=== PATIENT | female | born 1950 | race Caucasian/White ===

== ENCOUNTER 2016-10-13 18:36 | Emergency (ER) | payer MEDICARE, OTHER ==
[~2016-10-13 18:36] MED LIST: /ESCI10TA; ADV250INH INH; ADVAIR; ALLE25CA PO; AMBI10TA PO; BENA25TA9 PO; CARD180C4 PO; CELE-19 PO; COUM2.5T11 PO; ESTR625TA; FLUO20CA8 PO; HYDR12.55 PO; HYDR25TA6 PO; LISI10TA4 PO; LYRI75CA PO; MILKSUS5 PO; MIRA33504 PO; MULTCAP PO; OMEP20CA3 PO; PERC5TAB6 PO; PRIL20CA PO; SENO8.6T2 PO; TOPR50TA; TYLE325T5 PO; VICO5TAB PO; VICO5TAB16 PO; ZOCO40TA
[2016-10-13] MEDS ORDERED: ONDANSETRON 4 MG ORAL DISINTEGRATING TAB (S0181) As Ordered ONE (20:39)
--- NOTE | 2016-10-13 21:27 | EDDOCDS ---
Physician Documentation [facility] Name: Gretel Tang Age: 66 yrs Sex: Female : 1950 Arrival Date: 10/13/2016 Time: 18:36 Bed PR Private MD: Kay Lozano M. Disposition: 10/13/16 21:18 Discharged to Home/Self Care. Impression: Lower abdominal pain, unspecified, Unspecified adverse effect of drug or medicament. - Condition is Stable. - Discharge Instructions: Abdominal Pain, Adult, Food Choices to Help Relieve Diarrhea, Adult. - Prescriptions for ZOFRAN ODT 4 mg Oral - dissolve 1 tablet by ORAL route 4 times per day As needed do not chew, do not swallow whole; 20 tablet. - Medication Reconciliation, Local Pharmacy Hours form. - Follow up: Kay Lozano; When: Tomorrow; Reason: Recheck today's complaints, Continuance of care. - Problem is new. - Symptoms have improved. Historical: - Allergies: Codeine Sulfate; Lisinopril; PENICILLINS; - Home Meds: 1. Advair Diskus 250-50 mcg/dose Inhl dsdv 1 puff 2 times per day 2. metformin 500 mg Oral TG24 three times a day 3. chlorthalidone 25 mg Oral tab 1 tab once daily 4. omeprazole 20 mg Oral cpDR once daily 5. aspirin 81 mg Oral tab 1 tab once daily 6. fluoxetine 20 mg Oral cap 1 cap once daily 7. amlodipine 10 mg Oral tab 1 tab once daily - PMHx: COPD; Emphysema; GERD; Hypertension; Sleep Apnea w/ BiPap; Diabetes - NIDDM: controlled; - PSHx: Hysterectomy; wrist surgery; ulnar nerve bilateral; Carpal Tunnel Repair- Bilateral; hip replacement; Endoscopy, Upper; Knee surgery; nasal surgery; - Social history: Smoking status: Patient states former smoker of tobacco. No barriers to communication noted, The patient speaks fluent Armenian, Speaks appropriately for age. - Family history: Not pertinent. - : The pt / caregiver states he / she is not on anticoagulants. Home medication list is obtained from the patient. - Exposure Risk Screening:: None identified. Vital Signs: 10/13 18:37 BP 154 / 78; Pulse 101; Resp 22 S; Temp 96.9; Pulse Ox 97% on R/A; Weight 123.83 kg / dd6 273 lbs (R); Height 5 ft. 4 in. (162.56 cm) (R); 21:24 BP 146 / 76; Pulse 93; Resp 20; Temp 97.5(TE); Pulse Ox 94% on R/A; Pain 0/10; arin 18:37 Body Mass Index 46.86 (123.83 kg, 162.56 cm) dd6 MDM: 20:38 Ondansetron ODT Oral Disintegrating Tablet 4 mg PO once ordered. mo1 20:39 Abdomen 2 View Ordered. EDMS 20:45 Financial registration complete. gjb 20:49 [facility] Payment Agreement was scanned into [employer] and attached to record. kendrick Administered Medications: 20:43 Drug: Ondansetron ODT 4 mg [ondansetron 4 mg disintegrating tablet (1 tabs)] Route: PO; jf3 Signatures: Dispatcher [employer] EDMS Janet Chowdary RN RN srm O'Hagan, Michael, PA PA mo1 Geoffrey Zhong RN RN jmb Beck, Gabriela gjb Farman, Justin RN jf3 The chart was reviewed and I authenticate all verbal orders and agree with the evaluation and treatment provided.Corrections: (The following items were deleted from the chart) 20:43 20:39 CBC WITH DIFFERENTIAL+LAB ordered. EDMS EDMS 20:43 20:39 BASIC METABOLIC PROFILE+LAB ordered. EDMS EDMS 20:43 20:39 LIVER PROFILE+LAB ordered. EDMS EDMS Attachments: 20:49 [facility] Payment Agreement [facility] MTDD
--- NOTE | 2016-10-13 21:27 | EDDOCDS ---
Nurse's Notes [facility] Name: Gretel Tang Age: 66 yrs Sex: Female : 1950 Arrival Date: 10/13/2016 Time: 18:36 Bed PR1 / Private MD: Kay Lozano M. Diagnosis: Lower abdominal pain, unspecified;Unspecified adverse effect of drug or medicament Presentation: 10/13 18:40 Presenting complaint: Patient states: lower abd pain since 1430 today. nausea. diarrhea srm also. pt hyperventilating in triage . left triage to use BR. 18:54 Adult Sepsis Screening: The patient does not have new or worsening altered mentation. srm Patient's respiratory rate is less than 22. Systolic blood pressure is greater than 100. Patient has a qSOFA score of 0- Negative Sepsis Screen. Suicide/Homicide risk assessment- the patient denies having any suicidal and/or homicidal ideations and does not present with any other emotional, behavioral or mental health complaints. Status: Patient is not a family service caseworker or dependent. Transition of care: patient was not received from another setting of care. 18:54 Acuity: NIMA Level 3 srm 18:54 Method Of Arrival: Wheelchair srm 18:58 Presenting complaint: Patient states: started metformin this am then symptoms started srm this afternoon. Triage Assessment: 18:58 General: Appears uncomfortable, Behavior is appropriate for age, cooperative. Pain: srm Pain currently is 6 out of 10 on a pain scale. GI: Reports diarrhea, lower abdominal pain, nausea. Historical: - Allergies: Codeine Sulfate; Lisinopril; PENICILLINS; - Home Meds: 1. Advair Diskus 250-50 mcg/dose Inhl dsdv 1 puff 2 times per day 2. metformin 500 mg Oral TG24 three times a day 3. chlorthalidone 25 mg Oral tab 1 tab once daily 4. omeprazole 20 mg Oral cpDR once daily 5. aspirin 81 mg Oral tab 1 tab once daily 6. fluoxetine 20 mg Oral cap 1 cap once daily 7. amlodipine 10 mg Oral tab 1 tab once daily - PMHx: COPD; Emphysema; GERD; Hypertension; Sleep Apnea w/ BiPap; Diabetes - NIDDM: controlled; - PSHx: Hysterectomy; wrist surgery; ulnar nerve bilateral; Carpal Tunnel Repair- Bilateral; hip replacement; Endoscopy, Upper; Knee surgery; nasal surgery; - Social history: Smoking status: Patient states former smoker of tobacco. No barriers to communication noted, The patient speaks fluent Tajik, Speaks appropriately for age. - Family history: Not pertinent. - : The pt / caregiver states he / she is not on anticoagulants. Home medication list is obtained from the patient. - Exposure Risk Screening:: None identified. Screenin:24 Screening information is obtained from the patient. Fall risk: No risks identified. jmb Assistance ADL's: requires no assistance with activities of daily living. Abuse/DV Screen: The patient / caregiver reports he/she is: not in a situation that causes fear, pain or injury. Nutritional screening: No deficits noted. Advance Directives: Currently, there is no health care proxy. There is no active DNR order. There is no living will. There is no Power of Vise Hand. home support is adequate. Assessment: 21:24 General: Patient instructed on discharge instructions. Patient asked if there were any b questions regarding discharge, patient stated no. Patient signed discharge instructions. Patient discharged in stable condition. . GI: Abdomen is obese, Bowel sounds present X 4 quads. Abd is soft X 4 quads. Vital Signs: 18:37 BP 154 / 78; Pulse 101; Resp 22 S; Temp 96.9; Pulse Ox 97% on R/A; Weight 123.83 kg dd6 (R); Height 5 ft. 4 in. (162.56 cm) (R); 21:24 BP 146 / 76; Pulse 93; Resp 20; Temp 97.5(TE); Pulse Ox 94% on R/A; Pain 0/10; jmb 18:37 Body Mass Index 46.86 (123.83 kg, 162.56 cm) dd6 Vitals: 18:37 Log In Time: October 13, 2016 at 18:35. dd6 ED Course: 18:37 Patient visited by David Blanc PCA. dd6 18:37 Kay Lozano is Private Physician. dd6 18:37 Patient moved to Waiting dd6 18:38 Patient moved to Pre RCE dd6 18:54 Triage Initiated srm 20:08 Patient moved to Triage 1 jb5 20:10 Patient visited by Veronica Reeves PCA. jb5 20:24 Nikko Campos PA is PHCP. mo1 20:24 Puma Krishnamurthy DO is Attending Physician. mo1 20:31 Patient visited by Nikko Campso PA. mo1 20:43 Patient moved to TR1 jf3 20:49 [facility] Payment Agreement was scanned into [employer] and attached to record. gjb 21:08 Patient moved to PR1 / 25 jf3 21:18 Kay Lozano is Referral Physician. mo1 21:24 The patient / caregiver is instructed regarding the plan of care and ED course. jmb 21:24 No IV's were initiated during this patient's visit. No procedures done that require jmb assistance. Administered Medications: 20:43 Drug: Ondansetron ODT 4 mg [ondansetron 4 mg disintegrating tablet (1 tabs)] Route: PO; jf3 Order Results: There are currently no results for this order. Outcome: 21:18 Discharge ordered by Provider. mo1 21:24 Discharge Assessment: Patient awake, alert and oriented x 3. No cognitive and/or jmb functional deficits noted. Patient verbalized understanding of disposition instructions. Patient awake and alert. obeys commands, Oriented to person, place and time. Patient verbalized understanding of disposition instructions. Patient has no functional deficits. patient administered narcotics - no. The following High Risk Discharge criteria are identified: None. Discharged to home via wheelchair, with family. Condition: stable. Discharge instructions given to patient, Instructed on discharge instructions, follow up and referral plans. medication usage, Demonstrated understanding of instructions, medications, Pt was receptive of discharge instructions/ teaching. Prescriptions given X 1. No special radiology studies were completed. Property sent home with patient. 21:26 Patient left the ED. denverb Signatures: Janet Chowdary, RN RN Veronica Hale, NATIONAL EXPANSION RECRUITER NATIONAL EXPANSION RECRUITER jb5 David Blanc, NATIONAL EXPANSION RECRUITER NATIONAL EXPANSION RECRUITER dd6 Nikko Campos PA PA mo1 Geoffrey ZhongRN Honorio GarciaRN Louisa Chambers MTDD
--- NOTE | 2016-10-14 08:15 | REP ---
Clinical: Lower abdominal pain and cramping. Technique: Supine and upright views of the abdomen and pelvis. Findings: The bowel gas pattern is nonspecific and there is no evidence for obstruction or perforation. Multiple small radiodense structures are identified presumably within the ascending and transverse colon measuring up to approximately 17 mm maximal length and may reflect ingested tablets. Clinical correlation is recommended. No organomegaly. Skeletal structures normal for age. Impression: Suspected multiple ingested tablets requires correlation. No evidence for bowel obstruction or perforation. Signed by Raul Andersen MD 10/14/2016 08:06 A
--- NOTE | 2016-10-15 22:27 | EDDOCDS ---
Nurse's Notes [facility] Name: Gretel Tang Age: 66 yrs Sex: Female : 1950 Arrival Date: 10/13/2016 Time: 18:36 Bed PR1 / Private MD: Kay Lozano M. Diagnosis: Lower abdominal pain, unspecified;Unspecified adverse effect of drug or medicament Presentation: 10/13 18:40 Presenting complaint: Patient states: lower abd pain since 1430 today. nausea. diarrhea srm also. pt hyperventilating in triage . left triage to use BR. 18:54 Adult Sepsis Screening: The patient does not have new or worsening altered mentation. srm Patient's respiratory rate is less than 22. Systolic blood pressure is greater than 100. Patient has a qSOFA score of 0- Negative Sepsis Screen. Suicide/Homicide risk assessment- the patient denies having any suicidal and/or homicidal ideations and does not present with any other emotional, behavioral or mental health complaints. Status: Patient is not a sales agent food vending service or dependent. Transition of care: patient was not received from another setting of care. 18:54 Acuity: NIMA Level 3 srm 18:54 Method Of Arrival: Wheelchair srm 18:58 Presenting complaint: Patient states: started metformin this am then symptoms started srm this afternoon. Triage Assessment: 18:58 General: Appears uncomfortable, Behavior is appropriate for age, cooperative. Pain: srm Pain currently is 6 out of 10 on a pain scale. GI: Reports diarrhea, lower abdominal pain, nausea. Historical: - Allergies: Codeine Sulfate; Lisinopril; PENICILLINS; - Home Meds: 1. Advair Diskus 250-50 mcg/dose Inhl dsdv 1 puff 2 times per day 2. metformin 500 mg Oral TG24 three times a day 3. chlorthalidone 25 mg Oral tab 1 tab once daily 4. omeprazole 20 mg Oral cpDR once daily 5. aspirin 81 mg Oral tab 1 tab once daily 6. fluoxetine 20 mg Oral cap 1 cap once daily 7. amlodipine 10 mg Oral tab 1 tab once daily - PMHx: COPD; Emphysema; GERD; Hypertension; Sleep Apnea w/ BiPap; Diabetes - NIDDM: controlled; - PSHx: Hysterectomy; wrist surgery; ulnar nerve bilateral; Carpal Tunnel Repair- Bilateral; hip replacement; Endoscopy, Upper; Knee surgery; nasal surgery; - Social history: Smoking status: Patient states former smoker of tobacco. No barriers to communication noted, The patient speaks fluent Amharic, Speaks appropriately for age. - Family history: Not pertinent. - : The pt / caregiver states he / she is not on anticoagulants. Home medication list is obtained from the patient. - Exposure Risk Screening:: None identified. Screenin:24 Screening information is obtained from the patient. Fall risk: No risks identified. jmb Assistance ADL's: requires no assistance with activities of daily living. Abuse/DV Screen: The patient / caregiver reports he/she is: not in a situation that causes fear, pain or injury. Nutritional screening: No deficits noted. Advance Directives: Currently, there is no health care proxy. There is no active DNR order. There is no living will. There is no Power of Health Information Coder. home support is adequate. Assessment: 21:24 General: Patient instructed on discharge instructions. Patient asked if there were any b questions regarding discharge, patient stated no. Patient signed discharge instructions. Patient discharged in stable condition. . GI: Abdomen is obese, Bowel sounds present X 4 quads. Abd is soft X 4 quads. Vital Signs: 18:37 BP 154 / 78; Pulse 101; Resp 22 S; Temp 96.9; Pulse Ox 97% on R/A; Weight 123.83 kg dd6 (R); Height 5 ft. 4 in. (162.56 cm) (R); 21:24 BP 146 / 76; Pulse 93; Resp 20; Temp 97.5(TE); Pulse Ox 94% on R/A; Pain 0/10; jmb 18:37 Body Mass Index 46.86 (123.83 kg, 162.56 cm) dd6 Vitals: 18:37 Log In Time: October 13, 2016 at 18:35. dd6 ED Course: 18:37 Patient visited by David Blanc PCA. dd6 18:37 Kay Lozano is Private Physician. dd6 18:37 Patient moved to Waiting dd6 18:38 Patient moved to Pre RCE dd6 18:54 Triage Initiated srm 20:08 Patient moved to Triage 1 jb5 20:10 Patient visited by Veronica Reeves PCA. jb5 20:24 Nikko Campos PA is PHCP. mo1 20:24 Puma Krishnamurthy DO is Attending Physician. mo1 20:31 Patient visited by Nikko Campos PA. mo1 20:43 Patient moved to TR1 jf3 20:49 [facility] Payment Agreement was scanned into [employer] and attached to record. gjb 21:08 Patient moved to PR1 / 25 jf3 21:18 Kay Lozano is Referral Physician. mo1 21:24 The patient / caregiver is instructed regarding the plan of care and ED course. jmb 21:24 No IV's were initiated during this patient's visit. No procedures done that require jmb assistance. 10/14 08:46 Abdomen 2 View Returned. EDMS 10:04 T-Sheet-- Draft Copy was scanned into [employer] and attached to record. gb Administered Medications: 10/13 20:43 Drug: Ondansetron ODT 4 mg [ondansetron 4 mg disintegrating tablet (1 tabs)] Route: PO; jf3 Order Results: Radiology Order: Abdomen 2 View Test: Abdomen 2 View REASON FOR EXAMINATION: lower abd cramping; Clinical: Lower abdominal pain and cramping.; ; Technique: Supine and upright views of the abdomen and pelvis.; ; Findings:; The bowel gas pattern is nonspecific and there is no evidence for obstruction or; perforation. Multiple small radiodense structures are identified presumably; within the ascending and transverse colon measuring up to approximately 17 mm; maximal length and may reflect ingested tablets. Clinical correlation is; recommended. No organomegaly. Skeletal structures normal for age.; ; Impression:; Suspected multiple ingested tablets requires correlation.; No evidence for bowel obstruction or perforation.; ; ; Signed by; Raul Andersen MD 10/14/2016 08:06 A; Outcome: 21:18 Discharge ordered by Provider. mo1 21:24 Discharge Assessment: Patient awake, alert and oriented x 3. No cognitive and/or jmb functional deficits noted. Patient verbalized understanding of disposition instructions. Patient awake and alert. obeys commands, Oriented to person, place and time. Patient verbalized understanding of disposition instructions. Patient has no functional deficits. patient administered narcotics - no. The following High Risk Discharge criteria are identified: None. Discharged to home via wheelchair, with family. Condition: stable. Discharge instructions given to patient, Instructed on discharge instructions, follow up and referral plans. medication usage, Demonstrated understanding of instructions, medications, Pt was receptive of discharge instructions/ teaching. Prescriptions given X 1. No special radiology studies were completed. Property sent home with patient. 21:26 Patient left the ED. arin Signatures: Dispatcher [employer] EDMS Janet Chowdary, RN RN [facility] Ruchi Euceda, Reg Reg gb Reeves, Veronica, MANAGEMENT AND BUDGET ANALYST MANAGEMENT AND BUDGET ANALYST jb5 David Blanc, MANAGEMENT AND BUDGET ANALYST MANAGEMENT AND BUDGET ANALYST dd6 Nikko Campos PA PA Geoffrey Kenney,RN RN Honorio Rocha RN RN eli3 Louisa Basurto Chart Complete MTDD
--- NOTE | 2016-10-15 22:27 | EDDOCDS ---
Physician Documentation [facility] Name: Gretel Tang Age: 66 yrs Sex: Female : 1950 Arrival Date: 10/13/2016 Time: 18:36 Bed PR Private MD: Kay Lozano M. Disposition: 10/13/16 21:18 Discharged to Home/Self Care. Impression: Lower abdominal pain, unspecified, Unspecified adverse effect of drug or medicament. - Condition is Stable. - Discharge Instructions: Abdominal Pain, Adult, Food Choices to Help Relieve Diarrhea, Adult. - Prescriptions for ZOFRAN ODT 4 mg Oral - dissolve 1 tablet by ORAL route 4 times per day As needed do not chew, do not swallow whole; 20 tablet. - Medication Reconciliation, Local Pharmacy Hours form. - Follow up: Kay Lozano; When: Tomorrow; Reason: Recheck today's complaints, Continuance of care. - Problem is new. - Symptoms have improved. Historical: - Allergies: Codeine Sulfate; Lisinopril; PENICILLINS; - Home Meds: 1. Advair Diskus 250-50 mcg/dose Inhl dsdv 1 puff 2 times per day 2. metformin 500 mg Oral TG24 three times a day 3. chlorthalidone 25 mg Oral tab 1 tab once daily 4. omeprazole 20 mg Oral cpDR once daily 5. aspirin 81 mg Oral tab 1 tab once daily 6. fluoxetine 20 mg Oral cap 1 cap once daily 7. amlodipine 10 mg Oral tab 1 tab once daily - PMHx: COPD; Emphysema; GERD; Hypertension; Sleep Apnea w/ BiPap; Diabetes - NIDDM: controlled; - PSHx: Hysterectomy; wrist surgery; ulnar nerve bilateral; Carpal Tunnel Repair- Bilateral; hip replacement; Endoscopy, Upper; Knee surgery; nasal surgery; - Social history: Smoking status: Patient states former smoker of tobacco. No barriers to communication noted, The patient speaks fluent Lao, Speaks appropriately for age. - Family history: Not pertinent. - : The pt / caregiver states he / she is not on anticoagulants. Home medication list is obtained from the patient. - Exposure Risk Screening:: None identified. Vital Signs: 10/13 18:37 BP 154 / 78; Pulse 101; Resp 22 S; Temp 96.9; Pulse Ox 97% on R/A; Weight 123.83 kg / dd6 273 lbs (R); Height 5 ft. 4 in. (162.56 cm) (R); 21:24 BP 146 / 76; Pulse 93; Resp 20; Temp 97.5(TE); Pulse Ox 94% on R/A; Pain 0/10; jmb 18:37 Body Mass Index 46.86 (123.83 kg, 162.56 cm) dd6 MDM: 20:38 Ondansetron ODT Oral Disintegrating Tablet 4 mg PO once ordered. mo1 20:39 Abdomen 2 View Ordered. EDMS 20:45 Financial registration complete. [facility] 20:49 [facility] Payment Agreement was scanned into [employer] and attached to record. [facility] 10/14 10:04 T-Sheet-- Draft Copy was scanned into [employer] and attached to record. gb Administered Medications: 10/13 20:43 Drug: Ondansetron ODT 4 mg [ondansetron 4 mg disintegrating tablet (1 tabs)] Route: PO; jf3 Signatures: Dispatcher [employer]Host EDMS Janet Chowdary, RN RN [facility] Ruchi Euceda, Reg Reg gb Nikko Campos, HERNANDO PA mo1 Geoffrey Zhong RN RN jmb Beck, Gabriela gjb Farman, Justin RN jf3 The chart was reviewed and I authenticate all verbal orders and agree with the evaluation and treatment provided.Corrections: (The following items were deleted from the chart) 20:43 20:39 CBC WITH DIFFERENTIAL+LAB ordered. EDMS EDMS 20:43 20:39 BASIC METABOLIC PROFILE+LAB ordered. EDMS EDMS 20:43 20:39 LIVER PROFILE+LAB ordered. EDMS EDMS Attachments: 20:49 [facility] Payment Agreement [facility] 10/14 10:04 T-Sheet-- Draft Copy Chart Complete MTDD
--- NOTE | 2016-10-15 22:27 | EDDOCDS ---
Physician Documentation [facility] Name: Gretel Tang Age: 66 yrs Sex: Female : 1950 Arrival Date: 10/13/2016 Time: 18:36 Bed PR Private MD: Kay Lozano M. Disposition: 10/13/16 21:18 Discharged to Home/Self Care. Impression: Lower abdominal pain, unspecified, Unspecified adverse effect of drug or medicament. - Condition is Stable. - Discharge Instructions: Abdominal Pain, Adult, Food Choices to Help Relieve Diarrhea, Adult. - Prescriptions for ZOFRAN ODT 4 mg Oral - dissolve 1 tablet by ORAL route 4 times per day As needed do not chew, do not swallow whole; 20 tablet. - Medication Reconciliation, Local Pharmacy Hours form. - Follow up: Kay Lozano; When: Tomorrow; Reason: Recheck today's complaints, Continuance of care. - Problem is new. - Symptoms have improved. Historical: - Allergies: Codeine Sulfate; Lisinopril; PENICILLINS; - Home Meds: 1. Advair Diskus 250-50 mcg/dose Inhl dsdv 1 puff 2 times per day 2. metformin 500 mg Oral TG24 three times a day 3. chlorthalidone 25 mg Oral tab 1 tab once daily 4. omeprazole 20 mg Oral cpDR once daily 5. aspirin 81 mg Oral tab 1 tab once daily 6. fluoxetine 20 mg Oral cap 1 cap once daily 7. amlodipine 10 mg Oral tab 1 tab once daily - PMHx: COPD; Emphysema; GERD; Hypertension; Sleep Apnea w/ BiPap; Diabetes - NIDDM: controlled; - PSHx: Hysterectomy; wrist surgery; ulnar nerve bilateral; Carpal Tunnel Repair- Bilateral; hip replacement; Endoscopy, Upper; Knee surgery; nasal surgery; - Social history: Smoking status: Patient states former smoker of tobacco. No barriers to communication noted, The patient speaks fluent Malay, Speaks appropriately for age. - Family history: Not pertinent. - : The pt / caregiver states he / she is not on anticoagulants. Home medication list is obtained from the patient. - Exposure Risk Screening:: None identified. Vital Signs: 10/13 18:37 BP 154 / 78; Pulse 101; Resp 22 S; Temp 96.9; Pulse Ox 97% on R/A; Weight 123.83 kg / dd6 273 lbs (R); Height 5 ft. 4 in. (162.56 cm) (R); 21:24 BP 146 / 76; Pulse 93; Resp 20; Temp 97.5(TE); Pulse Ox 94% on R/A; Pain 0/10; jmb 18:37 Body Mass Index 46.86 (123.83 kg, 162.56 cm) dd6 MDM: 20:38 Ondansetron ODT Oral Disintegrating Tablet 4 mg PO once ordered. mo1 20:39 Abdomen 2 View Ordered. EDMS 20:45 Financial registration complete. [facility] 20:49 [facility] Payment Agreement was scanned into [employer] and attached to record. [facility] 10/14 10:04 T-Sheet-- Draft Copy was scanned into [employer] and attached to record. gb Administered Medications: 10/13 20:43 Drug: Ondansetron ODT 4 mg [ondansetron 4 mg disintegrating tablet (1 tabs)] Route: PO; jf3 Signatures: Dispatcher [employer]Host EDMS Janet Chowdary, RN RN [facility] Ruchi Euceda, Reg Reg gb Nikko Campos, HERNANDO PA mo1 Geoffrey Zhong RN RN jmb Beck, Gabriela gjb Farman, Justin RN jf3 The chart was reviewed and I authenticate all verbal orders and agree with the evaluation and treatment provided.Corrections: (The following items were deleted from the chart) 20:43 20:39 CBC WITH DIFFERENTIAL+LAB ordered. EDMS EDMS 20:43 20:39 BASIC METABOLIC PROFILE+LAB ordered. EDMS EDMS 20:43 20:39 LIVER PROFILE+LAB ordered. EDMS EDMS Attachments: 20:49 [facility] Payment Agreement [facility] 10/14 10:04 T-Sheet-- Draft Copy Chart Complete MTDD
== END 2016-10-13 21:26 | disposition home or self-care (01) ==
LOC: M ED 18:36
DX: R10.30 Lower abdominal pain, unspecified (principal); J44.9 Chronic obstructive pulmonary disease, unspecified; K21.9 Gastro-esophageal reflux disease without esophagitis; I10 Essential (primary) hypertension; G47.30 Sleep apnea, unspecified; E11.9 Type 2 diabetes mellitus without complications; Z87.891 Personal history of nicotine dependence; Z79.84 Long term (current) use of oral hypoglycemic drugs; Z79.82 Long term (current) use of aspirin; Z79.51 Long term (current) use of inhaled steroids; Z88.8 Allergy status to other drugs, medicaments and biological substances; Z88.0 Allergy status to penicillin

== ENCOUNTER → 2016-11-30 | Outpatient (CLI) | payer MEDICARE, OTHER ==
--- NOTE | 2016-11-30 12:30 | REP ---
BILATERAL FOOT SERIES: Eight views. HISTORY: Bilateral metatarsalgia. FINDINGS: Four views of the left foot demonstrate overall normal mineralization. No periosteal reaction or bony destructive lesion is seen. No fracture is noted. There is Achilles and plantar calcaneal spurring. Mild anteromedial soft tissue swelling is seen at the mid foot and ankle region. Four views of the right foot demonstrate overall normal mineralization. No acute bony abnormality is seen on the right. There is mild ankle joint spurring and plantar and Achilles calcaneal spurring are noted. IMPRESSION: No acute bony abnormality noted on either side. Signed by Gatito Carson MD 11/30/2016 01:32 P
== END ==
LOC: M LRY 10:50
PROVIDERS: ATTEND Family Medicine
DX: M77.42 Metatarsalgia, left foot (principal); E11.9 Type 2 diabetes mellitus without complications
CPT/HCPCS: 73630; 80061; 83036; G0463

== ENCOUNTER → 2016-11-30 | Outpatient (REF) | payer MEDICARE, OTHER | LOC: M SFHCLERA 10:34 | PROVIDERS: ATTEND Family Medicine | DX: E11.9 Type 2 diabetes mellitus without complications (principal) ==

== ENCOUNTER → 2016-12-12 | Outpatient (CLI) | payer MEDICARE, OTHER ==
--- NOTE | 2016-12-12 13:18 | REP ---
Chest x-ray: Three views. History: Fever. Cough. Comparison study: April 24, 2016. Findings: The lungs are slightly hyperinflated but free of infiltrate. Heart is mildly enlarged unchanged from comparison study. Pulmonary vasculature is not increased. Pleural angles are sharp. The patient is status post ventral cervical discectomy and fusion. Impression: Mild hyperinflation and mild cardiomegaly. Otherwise no acute disease. Signed by Gatito Carson MD 12/12/2016 03:17 P
== END ==
LOC: M LRY 11:27
PROVIDERS: ATTEND Family Medicine
DX: R50.9 Fever, unspecified (principal); I51.7 Cardiomegaly; Z98.890 Other specified postprocedural states
CPT/HCPCS: 71020; 87804; 94640; G0463

== ENCOUNTER → 2017-01-11 | Outpatient (CLI) | payer MEDICARE, OTHER ==
--- NOTE | 2017-01-11 16:36 | REP ---
LOW-DOSE LUNG SCREENING CT: 01/11/2017. Clinical history: Smoking history. Comparison chest x-ray 12/12/2016. Findings: Lung diana are mildly hyperinflated. There are several semisolid or solid small pulmonary nodules in the 4-5 mm range; most of these are peripheral and there are slightly more on the left than right. None of these show calcifications. The nodules have 8-10 mm combined diameters. Some are semisolid and ill-defined. There is no parenchymal mass, acute infiltrate, pleural effusion or other significant finding. Heart size borderline. There is some mild cylindrical bronchiectatic change bilaterally. Minor apical pleural scarring bilaterally as seen on chest radiographs. No calcified pleural plaque or pleural-based mass. No gross hilar mass with fairly symmetric sized orly. Impression: 1. LungRADS category III, probably benign. Multiple nodules 4-5 mm in size, many semisolid, some are solid with combined diameters in the 8-10 mm range for these 4-5 mm nodules. No other significant finding. 2. Recommend followup low-dose CT screening 6 months. Patients with this category of findings have a 1-2% chance of malignancy at the time of this examination. Signed by Austin Mejias MD 01/11/2017 05:26 P
== END ==
LOC: M RAD 14:47
PROVIDERS: ATTEND Family Medicine
DX: R91.8 Other nonspecific abnormal finding of lung field (principal); F17.210 Nicotine dependence, cigarettes, uncomplicated

== ENCOUNTER → 2017-03-05 | Outpatient (CLI) | payer MEDICARE, OTHER ==
--- NOTE | 2017-03-05 12:49 | REP ---
PA and lateral chest: Comparison is 12/12/2016. There are no infiltrates, effusions or masses. Lung diana are clear and unchanged. Cardiac size is normal and unchanged. The orly and mediastinum are unremarkable. There is a cervical spine stabilization plate, unchanged. Impression: Essentially negative chest. No change from the prior study. Signed by Jona Perrin MD 03/05/2017 12:41 P
== END ==
LOC: M LRY 11:13
PROVIDERS: ATTEND Family Medicine
DX: R10.9 Unspecified abdominal pain (principal); E11.9 Type 2 diabetes mellitus without complications
CPT/HCPCS: 71020; 83036; G0463

== ENCOUNTER → 2017-04-05 | Outpatient (REF) | payer MEDICARE, OTHER ==
[~2017-04-05] MED LIST changes: +BENA25TA10 PO; -BENA25TA9 PO; -CELE-19 PO; +CELE1CAP4 PO; -COUM2.5T11 PO; +COUM2.5T17 PO; +PERC5TAB12 PO; -PERC5TAB6 PO; -SENO8.6T2 PO; +SENO8.6T5 PO
[2017-04-05 18:45] LABS: ANION GAP 6 MEQ/L (8-16); BLOOD UREA NITROGEN 17 MG/DL (7-18); CALCIUM LEVEL 9.1 MG/DL (8.8-10.2); CARBON DIOXIDE LEVEL 33 MEQ/L (21-32); CHLORIDE LEVEL 102 MEQ/L (98-107); CREATININE FOR GFR 0.84 MG/DL (0.55-1.02); GLOMERULAR FILTRATION RATE > 60.0 (>45); GLUCOSE, FASTING 110 MG/DL (80-110); POTASSIUM SERUM 3.2 MEQ/L (3.5-5.1); SODIUM LEVEL 141 MEQ/L (136-145)
== END ==
LOC: M SFHCLERA 11:54
PROVIDERS: ATTEND Family Medicine
DX: Z01.818 Encounter for other preprocedural examination (principal); S42.209A Unspecified fracture of upper end of unspecified humerus, initial encounter for closed fracture; X58.XXXA Exposure to other specified factors, initial encounter; Y92.89 Other specified places as the place of occurrence of the external cause; Y93.89 Activity, other specified; Y99.8 Other external cause status; I10 Essential (primary) hypertension; J44.9 Chronic obstructive pulmonary disease, unspecified; G47.30 Sleep apnea, unspecified; F33.9 Major depressive disorder, recurrent, unspecified; M19.90 Unspecified osteoarthritis, unspecified site; E11.9 Type 2 diabetes mellitus without complications; J30.89 Other allergic rhinitis; E78.5 Hyperlipidemia, unspecified; J30.2 Other seasonal allergic rhinitis; Z23 Encounter for immunization; K21.9 Gastro-esophageal reflux disease without esophagitis
CPT/HCPCS: 80048; 90670; 93005; G0009; G0463